=== PATIENT | male | born 1980 | race Caucasian/White ===

== ENCOUNTER → 2017-07-11 14:56 | Outpatient (CLI) | payer SELFPAY ==
--- NOTE | 2017-07-11 15:08 | RAD_ITS ---
STUDY: X-RAY CHEST REASON FOR EXAM: Male, 37 years old. Asymmetry of the clavicles. No chest complaints. TECHNIQUE: PA and lateral views of the chest. COMPARISON: None. FINDINGS: The lungs are clear and expanded. There is no demonstrated pleural abnormality. Normal size heart. Normal mediastinum and ginna. Normal visualized pulmonary arteries. Normal visualized aortic arch and descending thoracic aorta. Normal visualized thoracic spine. Normal visualized ribs, clavicles, and shoulders. There is no demonstrated abnormality of the visualized soft tissue structures of the upper abdomen. RAD/Chest PA and Lateral IMPRESSION: Normal x-ray examination of the chest. Electronically Signed: Demarco Vilchis MD at 15:42 EDT Tel [phone], Service support ,
== END ==
PROVIDERS: Visit Provider Nurse Practitioner
DX: Q74.0 Other congenital malformations of upper limb(s), including shoulder girdle (principal)
CPT/HCPCS: 71046

== ENCOUNTER 2019-03-30 11:53 | Emergency (ER) | payer OTHER, SELFPAY ==
[2019-03-30 11:55] VITALS: BP 152/78; PULSE 80; RESP 18; TEMP 36.6; O2SAT 100; BMI 29.0
--- NOTE | 2019-03-30 12:21 | ED.DEP ---
ED Disposition - Plan for ED Patient: Instructions: Dog Bite Prescriptions: Amoxicillin/Potassium Clav [Augmentin 875-125 Tablet] 1 each PO BID #14 tablet Referrals: Kleber Beckman III, MD [STAFF PHYSICIAN] -
--- NOTE | 2019-03-30 12:24 | ED.VISSUMM ---
- ER Visit Summary Date of Service: 03/30/19 Chief Complaint: Dog bite History of Present Illness: The patient is a 39 M presenting with dog bite. Patient was bitten by dog just prior to arrival. He was at work when this occurred. He does not wish to file Worker's Compensation. He states the dog was someone's pet. He is unsure when his last tetanus immunization was. He has laceration to his right forearm. Denies other injuries. Physical Examination: Vitals are stable. Patient is afebrile. Alert no acute distress. HEENT exam is unremarkable. Neck is supple. Lungs are clear and equal bilaterally. Heart is regular rate and rhythm. Extremities right forearm laceration x2; 1.5 cm laceration dorsal right forearm, 2 cm laceration volar right forearm; neurovascularly intact distally. Skin is warm and dry. No focal neurologic deficit. Remainder of exam is unremarkable. Emergency Department Course and Treatment: Patient was given tetanus IM. Wound was copiously irrigated. Anesthetized with lidocaine. 2, 5-0 simple sutures were placed in each laceration. Patient was advised to watch closely for signs of infection. He is given Augmentin and a prescription for Augmentin. Advised return to the ED for worsening complaints. Disposition: Discharge home Impression: Dog bite, laceration repair This note was generated with [employer] dictation software. It may contain incorrect words, spelling, and punctuation that were not noted in review of the chart prior to signing ED Disposition - Plan for ED Patient: Instructions: Dog Bite Prescriptions: Amoxicillin/Potassium Clav [Augmentin 875-125 Tablet] 1 ea PO BID #14 tab Prescription Printed Referrals: Alicia Valverde DO [Primary Care Provider] -
[2019-03-30] MEDS: Amox/Clavulanate 875 MG Tablet PO (13:19)
[2019-03-30] MEDS: Diphth,Pertuss(Acell),Tet Vac 0.5 ML Vial IM (13:20)
[2019-03-30 13:26] VITALS: BP 132/65; PULSE 78; RESP 16; O2SAT 98
--- NOTE | 2019-03-30 14:49 | ED.DEP ---
ED Disposition - Plan for ED Patient: Instructions: Dog Bite Prescriptions: Amoxicillin/Potassium Clav [Augmentin 875-125 Tablet] 1 ea PO BID #14 tab Prescription Printed Referrals: Alicia Valverde DO [Primary Care Provider] -
[2019-03-30] MEDS: BACITRACIN 15 GM Tube 1 APPLIC TOPICAL (15:05)
== END 2019-03-30 15:06 | disposition home or self-care (01) ==
LOC: ED 12:43
PROVIDERS: Emergency Provider Emergency Medicine; Family Provider Internal Medicine; PCP Internal Medicine
DX: S50.871A Other superficial bite of right forearm, initial encounter (principal); W54.0XXA Bitten by dog, initial encounter; Y93.9 Activity, unspecified; Y92.9 Unspecified place or not applicable
CPT/HCPCS: 12002; 90715; 99282